=== PATIENT | female | born 1935 | race Caucasian/White ===

== ENCOUNTER → 2019-01-23 | Outpatient (CLI) | payer MEDICARE ==
--- NOTE | 2019-01-23 16:06 | XR ---
Right ankle HISTORY: Ulcer right lower extremity 3 views of the right ankle Bone mineralization is reduced. Vascular calcifications are present. Some loss of joint space at the tibiotalar joint. Wavy cortical irregularity noted along the distal fibula. There is a plantar calcan eal spur. Lateral exam not optimally positioned. Question a pes planus deformity. IMPRESSION: Osteopenia. Irregularity of the cortex along the fibula indeterminate age. Bone scan may be of benefit to assess for osteomyelitis or alternatively consider MRI for better evaluation.
== END | disposition home or self-care (01) ==
LOC: RADXRMAIN 15:10
PROVIDERS: ATTEND Nurse Practitioner Family
DX: M85.871 Other specified disorders of bone density and structure, right ankle and foot (principal); M89.8X6 Other specified disorders of bone, lower leg